=== PATIENT | female | born 1955 | race Caucasian/White ===

== ENCOUNTER → 2016-11-28 | Outpatient (CLI) | payer OTHER | LOC: FIMAGING 14:43 | DX: Z96.9 Presence of functional implant, unspecified (principal) ==

== ENCOUNTER → 2017-04-05 | Outpatient (CLI) | payer OTHER | LOC: BMCIMAGING 12:08 | PROVIDERS: ATTEND Family Medicine | DX: M51.37 Other intervertebral disc degeneration, lumbosacral region (principal) ==

== ENCOUNTER → 2017-04-08 | Outpatient (CLI) | payer OTHER | LOC: FIMAGING 08:57 | PROVIDERS: ATTEND Psychiatry & Neurology Neurology | DX: R29.2 Abnormal reflex (principal) ==

== ENCOUNTER → 2017-04-17 | Outpatient (CLI) | payer OTHER | LOC: FCPNEURO 20:00 | PROVIDERS: ATTEND Psychiatry & Neurology Sleep Medicine | DX: G47.33 Obstructive sleep apnea (adult) (pediatric) (principal) ==

== ENCOUNTER → 2018-04-03 | Outpatient (CLI) | payer OTHER | LOC: FIMAGING 09:05 | PROVIDERS: ATTEND Internal Medicine Gastroenterology | DX: K21.9 Gastro-esophageal reflux disease without esophagitis (principal); K44.9 Diaphragmatic hernia without obstruction or gangrene ==

== ENCOUNTER 2018-04-16 05:55 | Observation (INO) | payer OTHER ==
[2018-04-16] MEDS ORDERED: LR 1,000 ML IV ONE (06:13)
[2018-04-16] MEDS ORDERED: cefOXitin SODIUM 2 GM in NS 100 ML IV ONE (07:22)
[2018-04-16] MEDS ORDERED: MIDAZOLAM 2 MG/2 ML VIAL ONE (07:25)
[2018-04-16] MEDS ORDERED: DEXAMETHASONE 4 MG/ML VIAL ONE (07:27)
[2018-04-16] MEDS ORDERED: ROCURONIUM 100 MG/10 ML VIAL ONE (07:27)
[2018-04-16] MEDS ORDERED: ONDANSETRON 4 MG/2 ML VIAL ONE (07:27)
[2018-04-16] MEDS ORDERED: LIDOCAINE 2% 5 ML SDV ONE (07:27)
[2018-04-16] MEDS ORDERED: MIDAZOLAM 2 MG/2 ML VIAL IVP ONE (07:28)
[2018-04-16] MEDS ORDERED: PROPOFOL 200 MG/20 ML VIAL ONE (07:29)
[2018-04-16] MEDS ORDERED: fentaNYL 100 MCG/2 ML INJ ONE (07:29)
--- NOTE | 2018-04-16 07:29 | PDHPUP ---
History & Physical Update H&P update statement: This history and physical update is based on an assessment of the patient which was completed after admission or registration (within 24 hours), but prior to the surgery/procedure. H&P update: H&P reviewed & patient examined, no change in patient's condition since H&P completed
[2018-04-16] MEDS ORDERED: BUPIVACAINE 0.5% 30 ML SDV ONE (07:45)
[2018-04-16] MEDS ORDERED: PHENYLEPHRINE 10 MG/ML SDV ONE (08:10)
[2018-04-16] MEDS ORDERED: SUGAMMADEX SODIUM 200 MG/2 ML VIAL IVP ONE (09:04)
[2018-04-16] MEDS ORDERED: ONDANSETRON 4 MG/2 ML VIAL IVP PRN ×2 (09:27→09:28)
[2018-04-16] MEDS ORDERED: HYDROmorphONE/DILAUDID 1 MG/ML INJ IVP PRN (09:27)
--- NOTE | 2018-04-16 09:27 | POSTOPPROG ---
Post Op Note Date of Operation: 04/16/18 Surgeon: Gustavo Murguia Drapery Cutter: Dr. Martino Anesthesiologist: Dr. Burns Anesthesia: GET(General Endotracheal) Pre-op Diagnosis: GERD Post-op Diagnosis: GERD Procedure: DV HH repair, fundoplication Inf/Abcess present in the surg proc area at time of surgery?: No EBL: Minimal
[2018-04-16] MEDS ORDERED: ALBUTEROL 3 ML DEYVIAL IH PRN (09:28)
[2018-04-16] MEDS ORDERED: NALOXONE HCL 0.4 MG/ML INJ IVP PRN (09:28)
[2018-04-16] MEDS ORDERED: LR 500 ML IV PRN (09:28)
--- NOTE | 2018-04-16 09:28 | PDANEPAE ---
ANE History of Present Illness boy SUN Past Medical History - Cardiovascular History Hx Hypertension: No Hx Arrhythmias: No Hx Chest Pain: No Hx Coronary Artery / Peripheral Vascular Disease: No Hx CHF / Valvular Disease: No Hx Palpitations: No Cardiovascular History Comment: takes lasix for 'benign' swelling in ankles - Pulmonary History Hx COPD: No Hx Asthma/Reactive Airway Disease: Yes Hx Recent Upper Respiratory Infection: No Hx Oxygen in Use at Home: No Hx Sleep Apnea: Yes Sleep Apnea Screening Result - Last Documented: Positive Pulmonary History Comment: states gets pneumonia easily, is why she uses MDI's. APRYL +, uses Cpap - Neurologic History Hx Cerebrovascular Accident: No Hx Seizures: No Hx Dementia: No - Endocrine History Hx Diabetes: No Hypothyroid: No Hyperthyroid: No - Renal History Hx Renal Disorders: Yes Renal History Comment: overactive bladder - has stimulator in back - Liver History Hx Hepatic Disorders: No - Neurological & Psychiatric Hx Hx Neurological and Psychiatric Disorders: Yes Neurological / Psychiatric History Comment: depression, anxiety - Cancer History Hx Cancer: No - Congenital Disorder History Hx Congenital Disorders: No - GI History Hx Gastrointestinal Disorders: Yes Gastrointestinal History Comment: hiatal hernia. GERD - Other Health History Other Health History: wears glasses. eczema around nose - uses cream and ABX when flairs - Chronic Pain History Chronic Pain: Yes (low back) - Surgical History Prior Surgeries: bilat knee replacements. elbow surgery. carpel tunnel. plastic surgery. hysterestomy. tubal reversal. laparoscopic surgery. breast implants. stimlator for bladder ANE Review of Systems Review of Systems: - Exercise capacity METS (RN): 4 METS ANE Patient History - Allergies Allergies/Adverse Reactions: bupropion [From Wellbutrin] Allergy (Verified 04/11/18 13:03) dyskinesia of mouth buspirone [From BuSpar] Allergy (Verified 04/11/18 13:03) dyskinesia of mouth duloxetine Allergy (Verified 04/11/18 13:03) dyskinesia of mouth - Home Medications Home medications: home medication list seen and reviewed Home Medications: Albuterol [Proventil Inhaler HFA (*)] 1 - 2 puffs IH Q4H PRN 04/10/18 [Last Taken 03/26/18] Ascorbic Acid [Vitamin C 500 mg (*)] 500 mg PO DAILY 04/10/18 [Last Taken Unknown] Atorvastatin Calcium [Lipitor 40 mg (*)] 40 mg PO DAILY 04/10/18 [Last Taken 00:00] Cholecalciferol Vit D3 [Vitamin D3 2000 units tab (OTC)] 4,000 units PO DAILY [Last Taken 04/13/18] FLUoxetine [Prozac 20 MG (*)] 20 mg PO TID 04/10/18 [Last Taken 04/16/18 00:00] Ferrous Sulfate [Ferrous Sulf 325 MG (*)] 325 mg PO DAILY 04/10/18 [Last Taken 04/13/18] Fluticasone/Vilanterol [Breo Ellipta 200-25 Mcg INH] 1 each IH DAILY 04/10/18 [ Last Taken 04/16/18] Furosemide [Lasix 20 MG (*)] 20 mg PO DAILY 04/10/18 [Last Taken 03/26/18] Montelukast Sodium [Singulair 10 mg (*)] 10 mg PO DAILY@1800 04/10/18 [Last Taken 03/26/18] Pantoprazole Sodium [Protonix 40mg (*)] 40 mg PO BID 04/10/18 [Last Taken 00:00] Pramipexole Di-HCl [Pramipexole Dihydrochloride] 3 mg PO HS 04/10/18 [Last Taken 04/15/18] RX: Gabapentin 1,800 mg PO HS 04/10/18 [Last Taken 04/15/18] RX: Herbals/Supplements -Info Only 1 ea PO DAILY 04/10/18 [Last Taken 04/13/18] RX: Tramadol HCl 50 mg PO DAILY PRN 04/10/18 [Last Taken Unknown] - NPO status NPO Status: no food or drink >8 hours NPO Since - Liquids (Date): 04/16/18 NPO Since - Liquids (Time): 03:00 NPO Since - Solids (Date): 04/15/18 NPO Since - Solids (Time): 22:00 - Smoking Hx Smoking Status: Never smoked - Family Anes Hx Family Hx Anesthesia Complications: none ANE Labs/Vital Signs - Vital Signs Blood Pressure: 124/76 Heart Rate: 72 Respiratory Rate: 14 O2 Sat (%): 98 Height: 162.56 cm Weight: 97.522 kg ANE Physical Exam - Airway Mallampati Score: Class 2 Mouth exam: normal dental/mouth exam - Pulmonary Pulmonary: no respiratory distress - Cardiovascular Cardiovascular: regular rate and rhythym - ASA Status ASA Status: II ANE Anesthesia Plan Anesthesia Plan: general endotracheal anesthesia
--- NOTE | 2018-04-16 09:29 | POSTANESTH ---
Post Anesthetic Evaluation Cardiovascular Status: Normal, Stable Respiratory Status: Normal, Stable Level of Consciousness/Mental Status: Can Participate in Eval Pain Control: Adequate, Prn Tx Ordered Nausea/Vomiting Control: Adequate, Prn Tx Ordered Complications Possibly Related to Anesthesia: None Noted
[2018-04-16] MEDS ORDERED: HYDROmorphONE/DILAUDID 2 MG/ML INJ ONE (09:40)
[2018-04-16] MEDS: HYDROmorphONE/DILAUDID 2 MG/ML INJ IVP PRN ×3 (09:42→10:06)
[2018-04-16] MEDS ORDERED: OXYCODONE/APAP 5/325 TAB ONE (09:48)
[2018-04-16] MEDS: OXYCODONE/APAP 5/325 TAB PO PRN ×2 (09:48→17:10)
--- NOTE | 2018-04-16 16:46 | GOP ---
DATE OF OPERATION: 04/16/2018 SURGEON: Royce Murguia MD WASHERETTE MACHINE OPERATOR: Dr. Martino whose presence was requested by me and medically necessary for the safe an d timely completion of the case. ANESTHESIA: General endotracheal anesthesia. ANESTHESIOLOGIST: Dr. Burns PREOPERATIVE DIAGNOSIS: Gastroesophageal reflux disease. POSTOPERATIVE DIAGNOSIS: Gastroesophageal reflux disease. PROCEDURE PERFORMED: Robotic hiatal hernia repair and partial fundoplication. FINDINGS: Patient had a moderate hiatal hernia. No other lesions were identified. ESTIMATED BLOOD LOSS: 20 cc. INDICATIONS: 62-year-old female with a history of reflux. Risks and benefits of the procedure were discussed the patient and her family, their questions were answered, she wished to proceed. DESCRIPTION OF PROCEDURE: The patient was in the supine position initially. After the induction of adequate general endotracheal anesthesia, the patient was moved to the modified lithotomy position. The patient was then prepped and draped in the standard surgical fashion. Marcaine 0.5% was injected throughout the supraumbilical area for local anesthesia. An 8-mm incision was made and the abdominal wall was elevated. A Veress needle was inserted and afte r noting proper pressures, the abdomen was insufflated with carbon dioxide. An 8-mm trocar was place d and a camera followed. There was no apparent damage from trocar placement. Four more ports were p laced, three 8-mm ports in the upper abdomen and one 5-mm port in the right mid abdomen. These were all placed under direct vision after injecting 0.5% Marcaine for local anesthesia. The robot was then docked without difficulty. Robotic instruments were then used to perform the disse ction. The Harmonic scalpel was used to take down the gastrohepatic ligament. Dissection was then c arried over the esophagus exposing the right camille. The dissection proceeded laterally and the superi or portion of the esophagus and the left camille were exposed. The vagus nerves were seen and preserved throughout the entire case. Next, the posterior window was opened using blunt dissection and the [place] rmonic scalpel. Once this window was achieved, attention was turned to the short gastrics. A significant portion of the short gastric vessels was taken down using a Harmonic scalpel. This rebel ed up the fundus in its entirety. The mediastinal dissection was then performed. This was carefully performed using blunt dissection and minimal energy component. Once the entire visible portion of t he esophagus was freed and the gastroesophageal junction returned to the abdomen, the repair of the h iatal hernia ensued. Interrupted sutures of 3-0 silk were used to approximate the hiatus posteriorly . Enough room was seen for the esophagus and an instrument tip. The fundus was then brought posteri rahul to the esophagus and the wrap performed. Initial suture took bites of stomach, anterior esophag us, and stomach. Care was taken again to avoid the vagus nerve. Two more sutures of 3-0 silk were u sed to create the wrap inferiorly. This was a loose floppy wrap. No other lesions were identified a t this time. Good hemostasis was noted. The robot was then undocked. Trocars were removed under direct vision. The pneumoperitoneum was all owed to escape. The wounds were thoroughly irrigated. The skin at all sites was closed using 4-0 Mo nocryl in a subcuticular suture. Wounds were sterilely dressed and the patient was returned to the s upine position and extubated. The patient was then taken to the PACU in stable condition. COMPLICATIONS: None. DRAINS: None. ADDENDUM: A 270 degree wrap was created posteriorly. Sutures were used to anchor the stomach to the diaphragm. Following this, individual sutures were used on each side to create a 270 degree posteri or wrap. /[id number]/MODL
[2018-04-17] MEDS: OXYCODONE/APAP 5/325 TAB PO PRN ×2 (01:26→08:18)
[2018-04-17 07:22] VITALS: BP 117/70
--- NOTE | 2018-04-17 09:32 | SOAPPROG ---
SOAP Progress Note Assessment/Plan: Assessment: s/p lap fundoplication, doing well. D/c home, discussed post-op care. Plan: 04/17/18 09:30 Subjective: Patient without complaints, ra po, pain minimal, ambulating. Objective: Vital Signs Temp Pulse Resp BP Pulse Ox 36.4 C 71 18 117/70 96 04/17/18 07:21 04/17/18 07:21 04/17/18 07:21 04/17/18 07:21 04/17/18 09:24 04/16/18 04/17/18 04/18/18 05:59 05:59 05:59 Intake Total 1150 Output Total 2100 300 Balance -950 -300 Alert, NAD RRR Abd soft, [employer] C/D/I ICD10 Worksheet Patient Problems: Problems Problem Status Onset GERD (gastroesophageal reflux disease) Acute - ICD10 Problem Qualifiers (1) GERD (gastroesophageal reflux disease)
== END 2018-04-17 10:13 | disposition home or self-care (01) ==
LOC: F3N 05:55 → F3E 10:46
PROVIDERS: ADMIT Surgery; ATTEND Surgery
PROC: 0DV44ZZ Restriction of Esophagogastric Junction, Percutaneous Endoscopic Approach (ICD-10-PCS; principal; 2018-04-16 07:30)
PROC: 8E0W4CZ Robotic Assisted Procedure of Trunk Region, Percutaneous Endoscopic Approach (ICD-10-PCS; principal; 2018-04-16 07:30)
PROC: 0BQT4ZZ Repair Diaphragm, Percutaneous Endoscopic Approach (ICD-10-PCS; principal; 2018-04-16 07:30)
DX: K21.9 Gastro-esophageal reflux disease without esophagitis (principal); K44.9 Diaphragmatic hernia without obstruction or gangrene; J45.909 Unspecified asthma, uncomplicated; G47.33 Obstructive sleep apnea (adult) (pediatric); Z96.653 Presence of artificial knee joint, bilateral
CPT/HCPCS: 43281; G0378; J0694; J1100; J1170; J2250; J2370; J2405; J2704; J3010